=== PATIENT | female | born 2005 | race Caucasian/White ===

== ENCOUNTER 2025-01-30 19:38 | Emergency (ER) | payer BC, SELFPAY ==
[2025-01-30 19:42] VITALS: BP 124/75; PULSE 132; RESP 18; TEMP 37.3; O2SAT 98
[2025-01-30 19:48] VITALS: BP 124/75; PULSE 132; RESP 18; TEMP 37.3; O2SAT 98
--- NOTE | 2025-01-30 20:15 | DI.RAD_ITS ---
Exam(s) XR CHEST 2V PA LATERAL EXAM: XR CHEST 2V PA LATERAL CLINICAL HISTORY: Tachycardia. TECHNIQUE: 2D digital imaging was performed. COMPARISON: No exams were available for comparison FINDINGS: 2 views: Heart size is normal. The mediastinum is not widened. Lungs are clear. No infiltrates nor pleural effusions. IMPRESSION: No acute pulmonary findings. DATA REPOSITORY: RADIATION DOSE DELIVERED:
[2025-01-30] MEDS: Acetaminophen 500 MG TAB 1000 MG PO (20:25)
[2025-01-30] MEDS: Ibuprofen 600 MG TAB PO (20:27)
--- NOTE | 2025-01-30 21:26 | DI.VRAD_ITS ---
PROCEDURE INFORMATION: Exam: XR Chest Exam date and time: 01/30/2025 8:30 PM Age: 19 years old Clinical indication: Other: Body aches, headache /tachycardia TECHNIQUE: Imaging protocol: Radiologic exam of the chest. Views: 2 views. COMPARISON: No relevant prior studies available. FINDINGS: Lungs: The lungs are clear. No consolidative radiopacities. Pleural spaces: No pleural effusion. No pneumothorax. Heart/Mediastinum: The heart is normal size. Bones/joints: Unremarkable. Soft tissues: There are bilateral nipple piercings noted. IMPRESSION: No acute cardiopulmonary findings. Dictated and Authenticated by: Shanell Bolden MD. Orderin Eren Guillory MD
--- NOTE | 2025-01-30 22:05 | ED.GENADUL_ITS ---
Discharge Plan Disposition Patient Disposition: Home Discharge Details Clinical Impression: Acute viral syndrome Primary Care Provider: None,None ED Provider: Kahlil Jason Home Meds and New Rx's Prescriptions: New acetaminophen [Tylenol] 325 mg tablet 975 mg PO ONCE PRNQty: 60 0RF ibuprofen 600 mg tablet 600 mg PO Q6H PRNQty: 30 0RF Discharge Instructions Instructions: Mouth Sores (DC) Additional Instructions: Please follow-up with your primary care provider regarding your visit to the emergency department today. Be sure to discuss results of all test performed here today to include radiology, and laboratory testing as well as results for any pending cultures. Should your symptoms worsen, or if you develop new concerning symptoms, please return immediately emergency department for further evaluation. Discharge Data Discharge Date/Time-TO BE ENTERED AT DEPARTURE: 01/30/25 23:21 HPI General Date/Time Provider Initiated Documentation: 01/30/25 19:52 . HPI Narrative: MDM/Narrative: 19-year-old female with chills, body aches, lip lesions, sore throat, and runny nose. No cough, diarrhea, vomiting, dysuria, shortness of breath, chest pain. Tachycardic heart rate of 134. Differential Diagnosis: - Viral syndrome: Symptoms and exam findings consistent. Treat with Tylenol, ibuprofen. - Bacterial infection: Consider pneumonia, UTI due to tachycardia. Evaluate further. - Intra-abdominal or pelvic infection: Unlikely due to reassuring abdominal exam. Final Assessment: Viral syndrome without evidence on exam, CXR/UA of possible bacterial infection. Reassuring abdominal exam. Treated with Tylenol and ibuprofen. Clinical Impression: - Viral syndrome Disposition: - Discharge: Home. Stable for discharge. This document was created with assistance from [employer]. The patient consented to its use. HPI: The patient is a 19-year-old female presenting with chills, myalgia, labial lesions, pharyngitis, and rhinorrhea since the previous day. She denies experiencing cough, diarrhea, emesis, dysuria, dyspnea, chest pain, or any other new symptoms. ROS: Negative besides as mentioned above Exam: Vital signs: Reviewed. General Appearance: Alert and oriented. No acute distress. HEENT: Two aphthous ulcers on upper lip. Neck: Supple, full range of motion, no observable masses, No meningeal sign. Respiratory: No Respiratory distress. No tachypnea. Cardiovascular: Tachycardic heart rate of 134, regular rhythm. Gastrointestinal: Soft, nondistended, No rebound tenderness. Back: No midline tenderness to palpation or palpable step-offs of the C/T/L spine. Skin: Warm and dry, no rash. Neurological: Normal Gait, Grossly intact. Psychiatric: Appropriate for situation. Labs: Laboratory Tests Range/Units 01/30/25 20:25 Urine Color (Yellow) Yellow Urine Clarity (Clear) Clear Urine pH (5-8) 5.5 Ur Specific [place] (1.005-1.025) 1.015 Urine Protein (Neg-Trace) mg/dL Negative Urine Ketones (Negative) mg/dL Negative Urine Blood (Negative) Negative Urine Nitrite (Negative) Negative Urine Bilirubin (Negative) Negative Urine Urobilinogen (Up to 0.2) mg/dL 0.2 Ur Leukocyte Esterase (Negative) Trace H Urine RBC (0-2) HPF Negative Urine WBC (0-5) HPF 3-5 Ur Epithelial Cells (Negative) HPF Many Urine Crystals (Negative) HPF Negative Urine Bacteria (Negative) HPF Negative Urine Casts (Negative) LPF Negative Urine Mucus (Negative) Negative Ur Culture Indicated? No/Sq. Contamination Urine Glucose (Negative) mg/dL Negative Radiology: Chest x-ray 2 view: No acute disease as read by me Related Data Home Medications ?Medication ?Instructions ?Recorded ?Confirmed acetaminophen 325 mg tablet 975 mg (3 x 325 mg) PO ONC E PRN 01/30/25 (Tylenol) #60 tabs ibuprofen 600 mg tablet 600 mg PO Q6H PRN #30 tabs 0 01/30/25 Previous Rx's ?Medication ?Instructions ?Recorded acetaminophen 325 mg tablet 975 mg (3 x 325 mg) PO ONC E PRN 01/30/25 (Tylenol) #60 tabs ibuprofen 600 mg tablet 600 mg PO Q6H PRN #30 tabs 0 01/30/25 Allergies Allergy/AdvReac Type Severity Reaction Status Date / Time No Known Allergies Allergy Unverified 01/30/25 19:44 General Stated Complaint: [facility] VESNA: 3 Course Vital Signs Vital signs: Vital Signs Temperature 37.3 C 01/30/25 19:42 Pulse 132 H 01/30/25 19:42 Respiratory Rate 18 01/30/25 19:42 Blood Pressure 124/75 01/30/25 19:42 Pulse Oximetry 98 01/30/25 19:42 Temperature 37.3 C 01/30/25 19:48 Temperature Source Oral 01/30/25 19:48 Pulse 132 H 01/30/25 19:48 Respiratory Rate 18 01/30/25 19:48 Respiratory Effort Normal, Non-Labored 01/30/25 20:07 Respiratory Depth Normal 01/30/25 20:07 Respiratory Pattern Normal 01/30/25 20:07 Blood Pressure 124/75 01/30/25 19:48 Pulse Oximetry 98 01/30/25 19:48 Pain Level 3 01/30/25 20:25 PFSH All Active Problems (Updated 01/30/25 @ 23:11 by Kahlil Jason MD) Acute viral syndrome (Acute) Social History Smoking/Tobacco Use Status: Never Smoking risk assessment performed?: Yes Alcohol Intake: never Substance use type: does not use Housing: apartment Do you feel safe at home: Yes Do you feel safe in your relationship?: Yes
[2025-01-30 22:45] LABS: Glucose Negative (Negative)
[2025-01-30 23:11] LABS: RBC Negative HPF (0-2)
[2025-01-30 23:20] VITALS: PULSE 89; RESP 18; O2SAT 97
== END 2025-01-30 23:21 | disposition home or self-care (01) ==
PROVIDERS: Emergency Provider General Practice
DX: B34.9 Viral infection, unspecified (principal); R51.9 Headache, unspecified
CPT/HCPCS: 99284; 99283; 71046; 81003; 81015